=== PATIENT | female | born 1995 | race African-American/Black ===

== ENCOUNTER 2023-12-20 07:41 | Emergency (ER) | payer SELFPAY ==
[2023-12-20 07:49] VITALS: BP 146/98
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
[2023-12-20] MEDS: MOTRIN 800 MG PO (08:20)
[2023-12-20 08:25] VITALS: BP 148/98
--- NOTE | 2023-12-20 08:25 | EDRN ---
Reviewed discharge instructions with patient. Verbalized understanding. Ambulated with steady gait to the lobby.
== END 2023-12-20 08:25 | disposition home or self-care (01) ==
LOC: EMR 07:41
PROVIDERS: EMERGENCY PHYSICIAN Emergency Medicine
DX: R51.9 Headache, unspecified (principal); M54.9 Dorsalgia, unspecified; M54.2 Cervicalgia; V43.62XA Car passenger injured in collision with other type car in traffic accident, initial encounter; Y92.410 Unspecified street and highway as the place of occurrence of the external cause; K21.9 Gastro-esophageal reflux disease without esophagitis; F17.200 Nicotine dependence, unspecified, uncomplicated
CPT/HCPCS: 99282

== ENCOUNTER 2024-08-03 01:25 | Emergency (ER) | payer OTHER, SELFPAY ==
[2024-08-03 01:28] VITALS: BP 140/102
[2024-08-03] MEDS: TORADOL 60 MG IM (04:53)
[2024-08-03] MEDS: AUGMENTIN 875 MG/125 MG 1 TABLET PO (04:53)
[2024-08-03] MEDS: TYLENOL 1000 MG PO (04:53)
--- NOTE | 2024-08-03 05:47 | ED.GENMED ---
History of Present Illness
General
Chief Complaint: Dental Problem
Source: patient
Exam Limitations: none
Time Seen by Provider: 08/03/24 04:15
Nursing documentation reviewed up to this point in time: agreed with
History of Present Illness
History of Present Illness:
This is a 29-year-old woman with history of anxiety/depression, resides in a local skilled nursing. She complains of left posterior dental/molar pain that radiates to her left ear that began 2 weeks ago after undergoing wisdom teeth extraction x 4. She
has been taking ibuprofen but notes no relief of pain and ibuprofen has been causing a headache.
She has not been in contact with her oral surgeon.
She denies sore throat. No difficulty swallowing. Unsure if she has had a fever. No headache. No neck nor back pain.
Not on an antibiotic.
Past History
Past History
ED Past Medical History: GERD and Psychiatric (Anxiety, Depression)
ED Past Surgical History: None
Social History
Tobacco: Smoker
Alcohol: None
Personal: Single
Living: other (skilled nursing)
Employment: Not employed
Family History
Family History: Other (Noncontributory)
Phy Exam
Physical Exam
Physical Exam:
GENERAL: 29-year-old woman appears her stated age, awake and alert, appears mildly uncomfortable but easily communicative. Low-grade fever noted, oral temperature 99.4 �F.
EYE: pupils equal and reactive. anicteric
NECK: Supple, nontender, no meningismus, no significant adenopathy.
ENT: There is mild firm soft tissue swelling left posterior mandible with moderate local tenderness to palpation. No erythema nor palpable heat. Evidence for posterior molar dental extractions of tooth #1, #16, #17, #32. moderate local tenderness
at dental extraction site #17. There is no bleeding. No evidence of exudate. oral mucosa is minimally dry. Right TM is clear. Left TM is minimally red along the superior aspect. No effusion. Nares patent.
CARDIAC: Regular rate and rhythm. no murmur.
LUNGS: Clear breath sounds bilaterally, no acute respiratory distress, no wheezes/rales/rhonchi
ABDOMEN: Soft, nondistended, without focal tenderness, normoactive BS.
NEUROLOGICAL: Alert and oriented x3, no focal neuro deficits. Gait is gay and steady.
SKIN: Warm and dry, normal color, skin intact. No rash.
MUSCULOSKELETAL: No C/C/E. peripheral pulses are full and equal b/l. No palpable tenderness.
PSYCH: Normal and appropriate interaction.
Course
Orders/Labs/Results
Orders:
Orders
08/03/24 04:28
Acetaminophen [Tylenol] 1,000 mg PO NOW STA
Amoxicillin 875 mg/Clav 125 mg [Augmentin 875 mg/125 mg] 1 tablet PO NOW STA
Ketorolac [Toradol] 60 mg IM NOW STA
Vital Signs
Initial and Last Documented VS:
Initial Vital Signs
Temp Pulse Resp BP Pulse Ox
97.5 F 108 22 140/102 98
08/03/24 01:28 08/03/24 01:28 08/03/24 01:28 08/03/24 01:28 08/03/24 01:28
Last Documented Vital Signs
Temp Pulse Resp BP Pulse Ox
97.5 F 108 22 140/102 98
08/03/24 01:28 08/03/24 01:28 08/03/24 01:28 08/03/24 01:28 08/03/24 01:28
MDM/Problems Addressed
Differential Diagnosis Includes:
Patient is 2 weeks postop wisdom teeth extraction with persistent pain left dental extraction site #17. Concern for dry socket, concern for focal infection.
Overall nontoxic in appearance.
Will medicate for pain and fever and initiate Augmentin for potential focal infection.
Will encourage oral fluids.
Ultimately, patient will require follow-up with dental surgeon.
Chronic conditions affecting care: Psychiatric illness
*Pulse Oximetry
Patient hypoxic: no
*Critical Care Note
Total Time (30-74mins, 75-104mins- exclusive of procedures): Not Applicable
Update Note
Update Note:
Patient feeling improved, marked improvement in pain. Resting comfortably.
Plan was for prescription for Augmentin as well as Celebrex for pain.
She now produces a medication list which includes amoxicillin, metformin, pantoprazole, meloxicam 15 mg which she takes once daily, Haldol, benztropine, famotidine.
Recommend discontinuing meloxicam and will change to Celebrex to take twice daily.
Will discontinue amoxicillin and changed to clindamycin.
Prompt follow-up with oral surgeon.
ED Attending Note
-
Portions of this chart may have been created with voice recognition software.� Occasional wrong word or��sound alike� substitutions may have occurred due to the inherent limitations of voice recognition software.
Discharge Plan
Departure
Patient Disposition: Home (Routine Discharge)
Date of Disposition: 08/03/24
Time of Disposition: 05:53
Patient with high blood pressure during this ER visit?: Yes
Condition: Good
Discharge Problem:
Dentalgia, Postop dental extraction pain
Instructions: Dental Pain (DC)
Prescriptions:
New
celecoxib [Celebrex] 200 mg capsule
200 mg PO BID PRN (Reason: Pain) Qty: 14 0RF
clindamycin HCl [Cleocin HCl] 300 mg capsule
300 mg PO TID Qty: 21 0RF
Referrals:
UNKNOWN - PT DOES,NOT KNOW [Family Provider]
Activity Restrictions/Additional Instructions:
Continue soft foods, clear liquids.
I want you to discontinue amoxicillin, antibiotic has been changed to clindamycin to take 3 times daily.
You have also been prescribed Celebrex, a pain medication to take 1 capsule twice daily as needed for pain. While taking Celebrex, avoid meloxicam, ibuprofen as well as avoid other NSAIDs such as Motrin, Aleve, Advil.
Call your oral surgeon today to schedule prompt follow-up.
Interventions
Interventions:
*Risk Screen - Suicide Last Done: 08/03/24 01:28
*General Assessment Last Done: 08/03/24 01:28
*Neglect/Abuse Screening Last Done: 08/03/24 01:28
*ED COVID-19 Vaccine History Last Done: 08/03/24 02:21
Discharge Date and Time
Print Language: SYRIAC
== END 2024-08-03 06:51 | disposition home or self-care (01) ==
LOC: EMR 01:25
PROVIDERS: EMERGENCY PHYSICIAN Emergency Medicine
DX: G89.18 Other acute postprocedural pain (principal); K08.89 Other specified disorders of teeth and supporting structures; H92.02 Otalgia, left ear; K21.9 Gastro-esophageal reflux disease without esophagitis; F41.8 Other specified anxiety disorders; F17.200 Nicotine dependence, unspecified, uncomplicated
CPT/HCPCS: 99282; 96372

== ENCOUNTER 2024-08-12 10:14 | Emergency (ER) | payer OTHER, SELFPAY ==
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
[2024-08-12 10:22] VITALS: BP 146/91
[2024-08-12] MEDS: NSS 1000 IV (10:37)
[2024-08-12] MEDS: TYLENOL/FEVERALL 650 MG RECTAL (10:44)
[2024-08-12 10:48] LABS: % Basophils 0.3 % (0-2); % Eosinophils 0.1 % (0-6); % Immature Granulocytes 1.9 % (0-0.5); % Lymphocytes 13.2 % (20.5-51.1); % Monocytes 8.1 % (1.7-9.3); % Neutrophils 76.4 % (42.2-75.2); Absolute Basophils 0.1 10^3/uL (0-0.2); Absolute Immature Granulocytes 0.3 10^3/uL (0-0.05); Absolute Lymphocytes 2.3 10^3/uL (1.2-3.4); Absolute Monocytes 1.4 10^3/uL (0.1-0.6); Absolute Neutrophils 13.5 10^3/uL (1.4-6.5); Hematocrit 33.3 % (37.0-47.0); Hemoglobin 11.6 g/dL (12.0-16.0); Mean Corp Hgb Conc. 34.8 g/dL (33.0-37.0); Mean Corpuscular Hgb 29.6 pg (27.0-31.0); Mean Corpuscular Volume 84.9 fL (81.0-99.0); Nucleated Red Blood Cells % 0 %; Platelet Count 419 10^3/uL (130-400); Red Blood Cell Count 3.92 10^6/uL (4.20-5.40); Red Cell Dist. Width 13.9 % (11.5-14.5); White Blood Cell Count 17.6 10^3/uL (4.8-10.8)
[2024-08-12 10:53] LABS: Lactic Acid 1.6 mmol/L (0.7-2.0)
[2024-08-12 11:00] VITALS: BP 123/69
[2024-08-12 11:10] LABS: ALT (SGPT) 189 U/L (0-35); AST (SGOT) 112 U/L (14-36); Albumin 3.3 g/dl (3.5-5.0); Alkaline Phosphatase 130 U/L (38-126); Blood Urea Nitrogen 10 mg/dl (7-17); Calcium 8.5 mg/dl (8.4-10.2); Carbon Dioxide 28 mmol/L (22-30); Chloride 100 mmol/L (98-107); Glucose 243 mg/dl (70-99); Potassium 3.3 mmol/L (3.5-5.1); Sodium 135 mmol/L (135-145); Total Bilirubin 1.2 mg/dl (0.2-1.3); Total Protein 6.9 g/dl (6.3-8.2); eGFR > 60.00
[2024-08-12 11:28] LABS: HCG, Serum Qualitative Screen Negative
[2024-08-12] MEDS: OCUFLOX 2 DROP OPHTH (11:31)
[2024-08-12 12:06] LABS: Urine Albumin 3+ (Neg - Trace); Urine Bilirubin 2+ (Negative); Urine Character Clear (Clear); Urine Color Amber; Urine Glucose Negative (Negative); Urine Ketone 3+ (Negative); Urine Leukocyte 1+ (Negative); Urine Nitrite Negative (Negative); Urine Occult Blood 3+ (Negative); Urine Specific Gravity 1.015 (<1.030); Urine Urobilinogen 3+ (Neg - 1+)
[2024-08-12 12:26] LABS: Urine Squamous Cell >30 /LPF (Few)
[2024-08-12 12:27] LABS: Urine Bacteria Few (Negative); Urine Mucus Moderate; Urine White Cell 0-2 /HPF (0-5)
[2024-08-12 12:46] VITALS: BP 131/83
[2024-08-12 13:00] VITALS: BP 129/83
[2024-08-12] MEDS: UNASYN IV (13:06)
[2024-08-12 14:00] VITALS: BP 122/81
[2024-08-12] MEDS: VANCOCIN 540 MG IV (14:22)
== END 2024-08-12 14:46 | disposition short-term general hospital (02) ==
LOC: EMR 10:14
PROVIDERS: EMERGENCY PHYSICIAN Emergency Medicine
DX: G06.2 Extradural and subdural abscess, unspecified (principal); F17.200 Nicotine dependence, unspecified, uncomplicated; Z98.818 Other dental procedure status
CPT/HCPCS: 96365; 96367; 96361; 99291; 70450; 70487; 71045; 80053; 81003; 81015; 83605; 84703; 85025; 87040; 87086; Q9967